=== PATIENT | female | born 1955 | race Caucasian/White ===

== ENCOUNTER 2018-10-22 18:45 | Emergency (ER) | payer OTHER ==
[~2018-10-22] VITALS: Wt 65.0 kg
[2018-10-22] MEDS ORDERED: KETOROLAC 30 MG INJ IM STA (20:18)
[2018-10-22] MEDS ORDERED: DEXAMETHASONE 10 MG/ML 1 ML INJ IM ONE (20:30)
--- NOTE | 2018-10-22 20:48 | ERD ---
ER Documentation Chief Complaint Chief Complaint gradual onset of low back pain for the past 2 wks. no trauma. HPI This is a 63-year-old Ecuadorean speaking female presents to the ED complaining of progressively worsening mid lower back pain x2 weeks. She denies any trauma. 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 She states pain has been getting progressively worse for the past 2 days. She was prescribed cyclobenzaprine and meloxicam but has not taken this yet. She states pain is localized to her mid lower back and worse when walking, better when sitting. Denies any lower extremity numbness. Denies any loss of bowel or bladder control. Denies any fevers. No trauma reported. DISCLAIMER: Translating system was used to communicate w/ patient during their course of stay in the ED. All questions were answered prior to discharge. ROS All systems reviewed and are negative except as per history of present illness. Allergies Allergies: Coded Allergies: No Known Allergy (Unverified , 10/22/18) PMhx/Soc History of Surgery: Yes (APPENDECTOMY) Hx Alcohol Use: No Hx Substance Use: No Hx Tobacco Use: No Smoking Status: Never smoker Physical Exam Vitals Vital Signs Date Temp Pulse Resp B/P (MAP) Pulse Ox O2 O2 Flow FiO2 Time Delivery Rate 10/22/18 98.0 69 18 121/69 98 19:17 (86) Physical Exam Const: No acute distress Head: Atraumatic Eyes: Normal Conjunctiva ENT: Normal External Ears, Nose and Mouth. Neck: Full range of motion. No meningismus. Resp: Clear to auscultation bilaterally Cardio: Regular rate and rhythm, no murmurs Abd: Soft, non tender, non distended. Normal bowel sounds Skin: No petechiae or rashes Back: + Mild to his palpation of the mid SI joint, No step-offs. Negative straight leg raise. Bilateral lower extremity strength 5 out of 5, sensation grossly intact Ext: No cyanosis, or edema Neur: Awake and alert Psych: Normal Mood and Affect Results 24 hrs Laboratory Tests Test 10/22/18 20:15 Bedside Urine pH (LAB) 6.0 Bedside Urine Protein (LAB) Trace Bedside Urine Glucose (UA) Negative Bedside Urine Ketones (LAB) Trace Bedside Urine Blood 2+ Bedside Urine Nitrite (LAB) Negative Bedside Urine Leukocyte Esterase (L Negative Current Medications Medications Dose Sig/[place] Start Time Status Last (Trade) Ordered Route PRN Stop Time Admin Dose Reason Admin Ketorolac 30 mg ONCE STAT 10/22/18 DC 10/22/18 Tromethamine IM 20:18 20:32 (Toradol) 10/22/18 20:27 10 mg ONCE ONCE 10/22/18 DC 10/22/18 Dexamethasone IM 20:30 20:32 (Decadron) 10/22/18 20:31 Procedures/MDM ED COURSE: The patient was given IM Decadron, and Toradol The medication was well tolerated and the patient had market improvement in symptoms. The patient remained stable throughout ED course. MEDICAL DECISION MAKIN-year-old Ecuadorean-speaking female presents with atraumatic mid low back pain. There are no focal neurological deficits on physical exam therefore advanced imaging was deferred. I have low suspicion for epidural abscess, cauda equina, spinal tumor/mass or compression fracture. Symptoms to be muscular skeletal nature, spinal stenosis is also on the differential. Her pain improved after Decadron and Toradol here. She is encouraged to start taking the medication she was prescribed at her clinic. Recommended PCP follow-up in 1 week, strict return precautions were discussed. PRESCRIPTIONS: None, patient already has meloxicam and cyclobenzaprine SPECIALIST FOLLOW UP RECOMMENDED: Ortho Patient has been advised to follow up with primary care in 1-2 days. Departure Diagnosis: Primary Impression: Spinal stenosis Spinal region: lumbosacral Qualified Codes: M48.07 - Spinal stenosis, lumbosacral region Condition: Stable Patient Instructions: Back Pain (Acute Or Chronic) Referrals: [facility] 7 a.m.- 11 p.m. Every Day of the Week NO APPOINTMENT OR AUTHORIZATION NEEDED Additional Instructions: Take the medications are prescribed to you by your regular doctor. Return here for any new or worsening symptoms. NATALIYA HAYWOOD PA-C Oct 22, 2018 20:48
[2018-10-22 21:09] VITALS: BP 147/74; PULSE 68; RESP 16
== END 2018-10-22 21:13 | disposition home or self-care (01) ==
LOC: FTE 18:45
DX: M48.07 Spinal stenosis, lumbosacral region (principal)
CPT/HCPCS: 81003; 96372; J1100; J1885; Z7502